=== PATIENT | male | born 1950 | race African-American/Black ===

== ENCOUNTER 2022-10-05 15:10 | Inpatient (IN) | payer BC, MEDICAID ==
[~2022-10-05] VITALS: Ht 172.7 cm; Wt 88.0 kg
[2022-10-05] MEDS ORDERED: SODIUM CHLORIDE 0.9% 1000ML BAG (SEPSIS BOLUS) IV ONE (15:45)
[2022-10-05 16:22] LABS: BG BASE EXCESS -10.2 mmol/L (-2.0-2.0); BG CARBOXYHEMOGLOBIN 0.3 % (0.5-1.5); BG DEOXYHEMOGLOBIN 3.9 % (0.0-5.0); BG FRACTION INSPIRED OXYGEN 21; BG HCO3 ACT 15.2 mmol/L (22.0-26.0); BG METHEMOGLOBIN 0.3 % (0.0-1.5); BG OXYGEN SATURATION 96.1 % (92.0-98.5); BG OXYHEMOGLOBIN 95.5 % (94.0-97.0); BG PH 7.281 (7.350-7.450); BG PO2 90.2 mmHg (75.0-100.0); BG SAMPLE SITE RIGHT RADIAL; BG TOTAL HEMOGLOBIN 16.6 g/dL (12.0-18.0); BG VENT MODE ROOM AIR
[2022-10-05 16:37] LABS: HEMATOCRIT. 49.6 % (42.0-52.0); HEMOGLOBIN. 16.6 g/dL (14.0-18.0); MEAN CORPUSCULAR HEMOGLOBIN 29.1 pg (28.0-32.0); MEAN CORPUSCULAR VOLUME 86.8 fL (80.0-94.0); MEAN PLATELET VOLUME 10.6 fl (7.4-10.4); PLATELET 214 x1000/uL (130-400); RED BLOOD CELL COUNT 5.72 mill/uL (4.7-6.1); RED CELL DISTRIBUTION WIDTH 15.3 % (11.6-14.6)
[2022-10-05 17:38] LABS: CLARITY URINE CLEAR (CLEAR); COLOR URINE YELLOW (YELLOW); KETONES URINE 3+ (NEGATIVE); LEUKOCYTE ESTERASE URINE NEGATIVE (NEGATIVE); NITRITE URINE NEGATIVE (NEGATIVE); OCCULT BLOOD URINE 3+ (NEGATIVE); PROTEIN URINE 2+ (NEGATIVE); UROBILINOGEN URINE 0.2 E.U./dL (0.2-1.0)
[2022-10-05 17:53] LABS: PARTIAL THROMBOPLASTIN TIME 23.4 sec (23.4-31.0); PROTHROMBIN TIME 11.1 sec (9.6-11.0)
[2022-10-05 17:55] LABS: CHLORIDE 110 mEq/L (98-107)
[2022-10-05 17:59] LABS: PLATELET ESTIMATE NORMAL
[2022-10-05 18:21] LABS: BETA HYDROXYBUTYRATE <0.1 mMol/L mMol/L (0.0-0.3)
[2022-10-05 18:26] LABS: CREATINE KINASE 3038 IU/L (39-308)
[2022-10-05] MEDS ORDERED: SODIUM CHLORIDE 0.9% 1,000 ML IV STA (18:31)
[2022-10-05] MEDS ORDERED: LEVOFLOXACIN 750MG PREMIX 150 ML IV ONE (18:45)
[2022-10-05] MEDS ORDERED: KCL 20MEQ/100ML PREMIX 100 ML IV ONE (18:45)
[2022-10-05] MEDS ORDERED: INSULIN REGULAR 100U/100ML PMX 100 ML IV ONE ×2 (18:45→21:15)
[2022-10-05 20:26] LABS: CHLORIDE 114 mEq/L (98-107)
[2022-10-05] MEDS ORDERED: IPRATROPIUM/ALBUTEROL 0.5-3(2.5)MG/3ML NEB HHN PRN (20:45)
[2022-10-05] MEDS ORDERED: ACETAMINOPHEN 325MG TABLET PO PRN (20:45)
[2022-10-05] MEDS ORDERED: SODIUM CHLORIDE 0.45% 1,000 ML IV SCH (21:15)
[2022-10-05] MEDS ORDERED: MAGNESIUM 1 G PREMIX 100 ML IV PRN (21:15)
[2022-10-05] MEDS ORDERED: DEXT 5%/0.45% NACL 1000ML 1,000 ML IV SCH (21:15)
[2022-10-05] MEDS ORDERED: DEXTROSE 50% WATER 50ML SYRINGE IV PRN (21:15)
[2022-10-05] MEDS: BLOOD SUGAR DIAGNOSTIC STRIP TEST SCH ×3 (21:33→23:15)
[2022-10-05 23:05] LABS: CHLORIDE 114 mEq/L (98-107)
[2022-10-05 23:24] LABS: CREATINE KINASE 2997 IU/L (39-308); PHOSPHORUS 2.9 mg/dL (2.5-4.9)
[2022-10-06] VITALS (9 sets, daily range): BP systolic 134–156; BP diastolic 75–96
[2022-10-06] MEDS: METOPROLOL TARTRATE 5MG/5ML VIAL IV SCH ×4 (00:12→21:51)
[2022-10-06] MEDS: ACETAMINOPHEN 325MG TABLET PO PRN (00:13)
[2022-10-06] MEDS: BLOOD SUGAR DIAGNOSTIC STRIP TEST SCH ×9 (00:32→21:50)
[2022-10-06 05:44] LABS: BG BASE EXCESS -4.3 mmol/L (-2.0-2.0); BG CARBOXYHEMOGLOBIN 0.9 % (0.5-1.5); BG FRACTION INSPIRED OXYGEN 21; BG HCO3 ACT 20.3 mmol/L (22.0-26.0); BG METHEMOGLOBIN 0.3 % (0.0-1.5); BG OXYGEN SATURATION 93.9 % (92.0-98.5); BG OXYHEMOGLOBIN 92.8 % (94.0-97.0); BG PH 7.368 (7.350-7.450); BG SAMPLE SITE RIGHT BRACHIAL; BG TOTAL HEMOGLOBIN 15.4 g/dL (12.0-18.0); BG VENT MODE ROOM AIR
[2022-10-06 06:06] LABS: ETHANOL BLOOD < 10 mg/dL
[2022-10-06 06:11] LABS: CHLORIDE 115 mEq/L (98-107)
[2022-10-06 06:26] LABS: HDL CHOLESTEROL 65 mg/dL (40-59); LDL CHOLESTEROL 111 mg/dL (5-100); PHOSPHORUS 2.1 mg/dL (2.5-4.9); T4 FREE 0.96 ng/dL (0.76-1.46)
[2022-10-06 06:28] LABS: HEMATOCRIT. 43.1 % (42.0-52.0); HEMOGLOBIN. 14.4 g/dL (14.0-18.0); MEAN CORPUSCULAR HEMOGLOBIN 28.7 pg (28.0-32.0); MEAN CORPUSCULAR VOLUME 85.9 fL (80.0-94.0); MEAN PLATELET VOLUME 9.9 fl (7.4-10.4); PLATELET 197 x1000/uL (130-400); RED BLOOD CELL COUNT 5.02 mill/uL (4.7-6.1); RED CELL DISTRIBUTION WIDTH 14.5 % (11.6-14.6)
[2022-10-06] MEDS ORDERED: PANTOPRAZOLE 40MG DR TABLET PO SCH (06:30)
[2022-10-06 07:19] LABS: CREATINE KINASE 2865 IU/L (39-308)
[2022-10-06] MEDS ORDERED: CEFTRIAXONE 1GM PREMIX 50 ML IV SCH (09:00)
[2022-10-06 09:20] LABS: PLATELET ESTIMATE NORMAL
[2022-10-06 10:06] LABS: BG BASE EXCESS -5.1 mmol/L (-2.0-2.0); BG DEOXYHEMOGLOBIN 5.4 % (0.0-5.0); BG FRACTION INSPIRED OXYGEN 21; BG HCO3 ACT 19.9 mmol/L (22.0-26.0); BG METHEMOGLOBIN 0.1 % (0.0-1.5); BG OXYGEN SATURATION 94.5 % (92.0-98.5); BG OXYHEMOGLOBIN 93.5 % (94.0-97.0); BG PH 7.348 (7.350-7.450); BG PO2 72.8 mmHg (75.0-100.0); BG SAMPLE SITE LEFT RADIAL; BG TOTAL HEMOGLOBIN 14.7 g/dL (12.0-18.0); BG VENT MODE ROOM AIR
[2022-10-06] MEDS ORDERED: LEVOFLOXACIN 500MG PREMIX 100 ML IV SCH (12:00)
[2022-10-06] MEDS ORDERED: INSULIN GLARGINE 100 UNITS/ML SUBCUT NR (13:15)
[2022-10-06 13:55] LABS: *AMPHETAMINES SCREEN URINE NEGATIVE (NEGATIVE); *BARBITURATES SCREEN URINE NEGATIVE (NEGATIVE); *BENZODIAZEPINES SCREEN URINE NEGATIVE (NEGATIVE); *COCAINE SCREEN URINE NEGATIVE (NEGATIVE); CANNABINOID URINE SCREEN NEGATIVE (NEGATIVE); METHADONE URINE SCREEN NEGATIVE (NEGATIVE); OPIATES URINE SCREEN NEGATIVE (NEGATIVE); PHENCYCLIDINE URINE SCREEN NEGATIVE (NEGATIVE)
[2022-10-06] MEDS ORDERED: DEXTROSE 50% WATER 50ML SYRINGE IV PRN (14:00)
[2022-10-06] MEDS ORDERED: VANCOMYCIN 1G PREMIX 200 ML IV SCH (14:00)
[2022-10-06] MEDS ORDERED: VANCOMYCIN 2,000 MG in DEXT 5% WATER 500 ML IV SCH (15:00)
[2022-10-06] MEDS: INSULIN LISPRO 100 UNITS/ML SUBCUT SCH ×2 (17:54→21:57)
[2022-10-06] MEDS: LEVOFLOXACIN 500MG PREMIX 100 ML IV SCH (18:59)
[2022-10-07] VITALS (11 sets, daily range): BP systolic 133–182; BP diastolic 69–131
[2022-10-07] MEDS: METOPROLOL TARTRATE 5MG/5ML VIAL IV SCH ×3 (06:25→22:18)
[2022-10-07] MEDS: BLOOD SUGAR DIAGNOSTIC STRIP TEST SCH ×4 (07:15→22:07)
[2022-10-07] MEDS: PANTOPRAZOLE 40MG DR TABLET PO SCH (09:28)
[2022-10-07] MEDS: INSULIN LISPRO 100 UNITS/ML SUBCUT SCH ×4 (09:30→22:17)
[2022-10-07] MEDS: VANCOMYCIN 1.25GM PMX (XELLIA) 250 ML IV SCH (13:47)
[2022-10-07] MEDS: AMLODIPINE 10MG TABLET PO SCH (13:48)
[2022-10-07 15:12] LABS: HEMATOCRIT 40.5 % (42.0-52.0); HEMOGLOBIN 13.6 g/dL (14.0-18.0); MEAN CORPUSCULAR HEMOGLOBIN 28.8 pg (28.0-32.0); MEAN CORPUSCULAR VOLUME 85.8 fL (80.0-94.0); PLATELET 166 x1000/uL (130-400); RED BLOOD CELL COUNT 4.72 mill/uL (4.7-6.1); RED CELL DISTRIBUTION WIDTH 14.6 % (11.6-14.6)
[2022-10-07 15:27] LABS: CHLORIDE 110 mEq/L (98-107)
[2022-10-07] MEDS: LEVOFLOXACIN 500MG PREMIX 100 ML IV SCH (18:08)
[2022-10-08] VITALS: BP 142/83
[2022-10-08 04:00] VITALS: BP 158/85
[2022-10-08] MEDS: VANCOMYCIN 1.25GM PMX (XELLIA) 250 ML IV SCH ×2 (05:49→23:46)
[2022-10-08] MEDS: METOPROLOL TARTRATE 5MG/5ML VIAL IV SCH ×3 (05:49→20:35)
[2022-10-08] MEDS: BLOOD SUGAR DIAGNOSTIC STRIP TEST SCH ×4 (06:29→20:35)
[2022-10-08] MEDS: PANTOPRAZOLE 40MG DR TABLET PO SCH (07:18)
[2022-10-08 07:33] LABS: BASOPHILS % 0.3 % (0.0-2.0); EOSINOPHILS % 3.3 % (0.0-5.0); HEMATOCRIT. 41.5 % (42.0-52.0); HEMOGLOBIN. 14.1 g/dL (14.0-18.0); MEAN CORPUSCULAR HEMOGLOBIN 29.1 pg (28.0-32.0); MEAN CORPUSCULAR VOLUME 85.7 fL (80.0-94.0); MEAN PLATELET VOLUME 9.8 fl (7.4-10.4); MONOCYTES % 11.5 % (2.0-8.0); NEUTROPHILS % 62.9 % (40.0-76.0); PLATELET 160 x1000/uL (130-400); RED BLOOD CELL COUNT 4.84 mill/uL (4.7-6.1); RED CELL DISTRIBUTION WIDTH 14.6 % (11.6-14.6)
[2022-10-08 08:00] VITALS: BP 152/76
[2022-10-08] MEDS: AMLODIPINE 10MG TABLET PO SCH (08:09)
[2022-10-08] MEDS: INSULIN LISPRO 100 UNITS/ML SUBCUT SCH ×4 (08:10→20:35)
[2022-10-08 08:56] LABS: CHLORIDE 109 mEq/L (98-107)
[2022-10-08 12:00] VITALS: BP 135/74
[2022-10-08] MEDS ORDERED: LEVOFLOXACIN 500MG TABLET PO SCH (13:00)
[2022-10-08 15:56] VITALS: BP 151/81
[2022-10-08 20:16] VITALS: BP 147/92
[2022-10-09] VITALS (7 sets, daily range): BP systolic 112–166; BP diastolic 59–91
[2022-10-09] MEDS: METOPROLOL TARTRATE 5MG/5ML VIAL IV SCH ×3 (05:17→21:03)
[2022-10-09] MEDS: BLOOD SUGAR DIAGNOSTIC STRIP TEST SCH ×4 (06:18→20:17)
[2022-10-09 07:06] LABS: EOSINOPHILS % 3.1 % (0.0-5.0); HEMATOCRIT. 39.7 % (42.0-52.0); HEMOGLOBIN. 13.6 g/dL (14.0-18.0); LYMPHOCYTES % 24.3 % (20.0-50.0); MEAN CORPUSCULAR VOLUME 84.8 fL (80.0-94.0); MEAN PLATELET VOLUME 9.1 fl (7.4-10.4); MONOCYTES % 9.4 % (2.0-8.0); NEUTROPHILS % 62.2 % (40.0-76.0); PLATELET 149 x1000/uL (130-400); RED BLOOD CELL COUNT 4.68 mill/uL (4.7-6.1); RED CELL DISTRIBUTION WIDTH 14.3 % (11.6-14.6)
[2022-10-09 07:28] LABS: CHLORIDE 109 mEq/L (98-107)
[2022-10-09] MEDS: FAMOTIDINE 20MG TABLET PO SCH ×2 (08:09→21:02)
[2022-10-09] MEDS: AMLODIPINE 10MG TABLET PO SCH (08:09)
[2022-10-09] MEDS: INSULIN LISPRO 100 UNITS/ML SUBCUT SCH ×4 (08:10→21:14)
[2022-10-09] MEDS ORDERED: POLYETHYLENE GLYCOL 3350 (17GM) 1 DOSE PACK PO PRN (10:30)
[2022-10-09] MEDS ORDERED: NA PHOS,M-B/NA PHOS,DI-BA ENEMA 118ML PR PRN (10:30)
[2022-10-09] MEDS: SENNOSIDES/DOCUSATE SOD 8.6/50MG TABLET PO SCH ×2 (10:40→16:08)
[2022-10-09] MEDS: VANCOMYCIN 1500MG in DEXTROSE 5% WATER 250ML IV SCH ×2 (10:41→21:02)
[2022-10-09] MEDS: ACETAMINOPHEN 325MG TABLET PO PRN (21:03)
[2022-10-10] VITALS: BP 155/79
[2022-10-10 04:00] VITALS: BP 144/76
[2022-10-10 05:26] LABS: CHLORIDE 102 mEq/L (98-107)
[2022-10-10] MEDS: METOPROLOL TARTRATE 5MG/5ML VIAL IV SCH ×3 (05:47→21:28)
[2022-10-10 05:58] LABS: BASOPHILS % 0.4 % (0.0-2.0); EOSINOPHILS % 2.6 % (0.0-5.0); HEMATOCRIT. 41.3 % (42.0-52.0); HEMOGLOBIN. 14.2 g/dL (14.0-18.0); LYMPHOCYTES % 23.4 % (20.0-50.0); MEAN CORPUSCULAR HEMOGLOBIN 29.2 pg (28.0-32.0); MEAN CORPUSCULAR VOLUME 85.1 fL (80.0-94.0); MEAN PLATELET VOLUME 9.9 fl (7.4-10.4); MONOCYTES % 10.9 % (2.0-8.0); NEUTROPHILS % 62.7 % (40.0-76.0); PLATELET 163 x1000/uL (130-400); RED BLOOD CELL COUNT 4.85 mill/uL (4.7-6.1); RED CELL DISTRIBUTION WIDTH 14.2 % (11.6-14.6)
[2022-10-10] MEDS: BLOOD SUGAR DIAGNOSTIC STRIP TEST SCH ×4 (06:54→20:16)
[2022-10-10 08:00] VITALS: BP 157/80
[2022-10-10] MEDS: INSULIN LISPRO 100 UNITS/ML SUBCUT SCH ×4 (08:10→21:28)
[2022-10-10] MEDS: AMLODIPINE 10MG TABLET PO SCH (10:25)
[2022-10-10] MEDS: FAMOTIDINE 20MG TABLET PO SCH ×2 (10:26→21:28)
[2022-10-10] MEDS: SENNOSIDES/DOCUSATE SOD 8.6/50MG TABLET PO SCH ×2 (10:26→18:47)
[2022-10-10] MEDS: VANCOMYCIN 1500MG in DEXTROSE 5% WATER 250ML IV SCH ×2 (10:31→18:47)
[2022-10-10 12:00] VITALS: BP 140/79
[2022-10-10 16:00] VITALS: BP 140/70
[2022-10-10 20:00] VITALS: BP 142/61
[2022-10-11] VITALS: BP 159/83
[2022-10-11 04:00] VITALS: BP 167/78
[2022-10-11] MEDS: METOPROLOL TARTRATE 5MG/5ML VIAL IV SCH ×3 (05:00→22:16)
[2022-10-11] MEDS: CLONIDINE 0.1MG TABLET PO PRN (05:00)
[2022-10-11 07:02] LABS: BASOPHILS % 0.4 % (0.0-2.0); EOSINOPHILS % 2.2 % (0.0-5.0); HEMATOCRIT. 39.7 % (42.0-52.0); HEMOGLOBIN. 13.3 g/dL (14.0-18.0); LYMPHOCYTES % 16.2 % (20.0-50.0); MEAN CORPUSCULAR HEMOGLOBIN 28.8 pg (28.0-32.0); MEAN PLATELET VOLUME 9.5 fl (7.4-10.4); MONOCYTES % 12.1 % (2.0-8.0); NEUTROPHILS % 69.1 % (40.0-76.0); PLATELET 175 x1000/uL (130-400); RED BLOOD CELL COUNT 4.62 mill/uL (4.7-6.1)
[2022-10-11] MEDS: BLOOD SUGAR DIAGNOSTIC STRIP TEST SCH ×4 (07:05→21:30)
[2022-10-11 07:11] LABS: CHLORIDE 101 mEq/L (98-107)
[2022-10-11] MEDS: INSULIN LISPRO 100 UNITS/ML SUBCUT SCH ×4 (07:32→22:18)
[2022-10-11] MEDS ORDERED: TETRACAINE/BENZOCAINE/BUTAMBEN 20 GM SPRAY MM ONE (07:36)
[2022-10-11] MEDS ORDERED: FENTANYL CITRATE/PF 50MCG/ML 2ML VIAL ONE (07:57)
[2022-10-11] MEDS ORDERED: MIDAZOLAM HCL 2 MG/2 ML VIAL ONE (07:58)
[2022-10-11] MEDS ORDERED: LIDOCAINE 2% 6ML GLYDO MM ONE (08:00)
[2022-10-11] MEDS ORDERED: DIPHENHYDRAMINE 50MG/ML VIAL ONE (08:07)
[2022-10-11 10:00] VITALS: BP 168/86
[2022-10-11] MEDS: AMLODIPINE 10MG TABLET PO SCH (11:37)
[2022-10-11] MEDS: FAMOTIDINE 20MG TABLET PO SCH ×2 (11:37→22:15)
[2022-10-11] MEDS: SENNOSIDES/DOCUSATE SOD 8.6/50MG TABLET PO SCH ×2 (11:37→17:12)
[2022-10-11 12:00] VITALS: BP 147/85
[2022-10-11] MEDS ORDERED: POTASSIUM CHLORIDE 10MEQ TABLET SR PO NR (13:15)
[2022-10-11] MEDS: VANCOMYCIN 1500MG in DEXTROSE 5% WATER 250ML IV SCH (13:39)
[2022-10-11] MEDS ORDERED: KCL 20MEQ/100ML PREMIX 100 ML IV NR (14:00)
[2022-10-11 16:00] VITALS: BP 147/78
[2022-10-11 20:00] VITALS: BP 110/65
[2022-10-11] MEDS: ENOXAPARIN 40MG/0.4ML SYR SUBCUT SCH (22:16)
[2022-10-11] MEDS: INSULIN GLARGINE 100 UNITS/ML SUBCUT SCH (22:18)
[2022-10-12] VITALS: BP 152/86
[2022-10-12] MEDS: ACETAMINOPHEN 325MG TABLET PO PRN (00:29)
[2022-10-12 04:00] VITALS: BP 150/72
[2022-10-12] MEDS: METOPROLOL TARTRATE 5MG/5ML VIAL IV SCH ×3 (06:48→21:26)
[2022-10-12] MEDS: VANCOMYCIN 1500MG in DEXTROSE 5% WATER 250ML IV SCH (06:49)
[2022-10-12] MEDS: BLOOD SUGAR DIAGNOSTIC STRIP TEST SCH ×4 (07:40→21:26)
[2022-10-12 08:00] VITALS: BP 150/81
[2022-10-12] MEDS: INSULIN LISPRO 100 UNITS/ML SUBCUT SCH ×4 (08:10→21:26)
[2022-10-12] MEDS: SENNOSIDES/DOCUSATE SOD 8.6/50MG TABLET PO SCH ×2 (08:31→16:42)
[2022-10-12] MEDS: FAMOTIDINE 20MG TABLET PO SCH ×2 (08:31→21:26)
[2022-10-12] MEDS: AMLODIPINE 10MG TABLET PO SCH (08:31)
[2022-10-12 12:00] VITALS: BP 136/68
[2022-10-12 16:00] VITALS: BP 130/67
[2022-10-12 16:29] LABS: CREATINE KINASE 263 IU/L (39-308)
[2022-10-12] MEDS ORDERED: ALBUTEROL 6.7GM HFA INHALER ORI PRN (20:00)
[2022-10-12 20:52] VITALS: BP 166/65
[2022-10-12] MEDS: ENOXAPARIN 40MG/0.4ML SYR SUBCUT SCH (21:25)
[2022-10-12] MEDS: CLONIDINE 0.1MG TABLET PO PRN (21:26)
[2022-10-12] MEDS: INSULIN GLARGINE 100 UNITS/ML SUBCUT SCH (21:27)
[2022-10-13] VITALS: BP 169/82
[2022-10-13] MEDS: VANCOMYCIN 1500MG in DEXTROSE 5% WATER 250ML IV SCH (00:56)
[2022-10-13 04:00] VITALS: BP 148/79
[2022-10-13 06:23] LABS: CHLORIDE 98 mEq/L (98-107)
[2022-10-13] MEDS: METOPROLOL TARTRATE 5MG/5ML VIAL IV SCH ×3 (06:23→22:08)
[2022-10-13 06:31] LABS: HEMATOCRIT. 40.4 % (42.0-52.0); HEMOGLOBIN. 13.7 g/dL (14.0-18.0); MEAN CORPUSCULAR VOLUME 85.8 fL (80.0-94.0); MEAN PLATELET VOLUME 9.4 fl (7.4-10.4); PLATELET 199 x1000/uL (130-400); RED BLOOD CELL COUNT 4.71 mill/uL (4.7-6.1); RED CELL DISTRIBUTION WIDTH 14.3 % (11.6-14.6)
[2022-10-13] MEDS: BLOOD SUGAR DIAGNOSTIC STRIP TEST SCH ×4 (06:37→21:59)
[2022-10-13] MEDS: INSULIN LISPRO 100 UNITS/ML SUBCUT SCH ×4 (07:16→22:10)
[2022-10-13 08:00] VITALS: BP 148/91
[2022-10-13] MEDS ORDERED: KCL 20MEQ/100ML PREMIX 100 ML IV NR (09:00)
[2022-10-13] MEDS: FAMOTIDINE 20MG TABLET PO SCH ×2 (09:12→21:59)
[2022-10-13] MEDS: AMLODIPINE 10MG TABLET PO SCH (09:13)
[2022-10-13] MEDS: SENNOSIDES/DOCUSATE SOD 8.6/50MG TABLET PO SCH ×2 (09:14→17:59)
[2022-10-13] MEDS ORDERED: ATOR20TA65 PO (11:17)
[2022-10-13] MEDS ORDERED: DAPT500V17 IV (11:17)
[2022-10-13] MEDS ORDERED: AMLO10TA80 PO (11:17)
[2022-10-13 12:00] VITALS: BP 152/79
[2022-10-13 16:00] VITALS: BP 159/80
[2022-10-13] MEDS ORDERED: BLOOD SUGAR DIAGNOSTIC STRIP TEST SCH (16:40)
[2022-10-13] MEDS: VANCOMYCIN 1G PREMIX 200 ML IV SCH (17:59)
[2022-10-13 18:52] LABS: PLATELET ESTIMATE NORMAL
[2022-10-13 20:00] VITALS: BP 160/86
[2022-10-13] MEDS: ENOXAPARIN 40MG/0.4ML SYR SUBCUT SCH (22:00)
[2022-10-13] MEDS: INSULIN GLARGINE 100 UNITS/ML SUBCUT SCH (22:10)
[2022-10-14] VITALS: BP_SYST 129; BP_SYST 139; BP_DIAS 71; BP_DIAS 82
[2022-10-14 04:00] VITALS: BP 108/81
[2022-10-14] MEDS: VANCOMYCIN 1G PREMIX 200 ML IV SCH ×2 (05:48→17:23)
[2022-10-14] MEDS: BLOOD SUGAR DIAGNOSTIC STRIP TEST SCH ×4 (05:57→21:24)
[2022-10-14] MEDS: INSULIN LISPRO 100 UNITS/ML SUBCUT SCH ×4 (05:57→21:29)
[2022-10-14 08:00] VITALS: BP 145/77
[2022-10-14] MEDS: AMLODIPINE 10MG TABLET PO SCH (09:15)
[2022-10-14] MEDS: SENNOSIDES/DOCUSATE SOD 8.6/50MG TABLET PO SCH ×2 (09:15→17:23)
[2022-10-14] MEDS: FAMOTIDINE 20MG TABLET PO SCH ×2 (09:16→21:28)
[2022-10-14 09:23] LABS: HEMATOCRIT 40.4 % (42.0-52.0); HEMOGLOBIN 13.7 g/dL (14.0-18.0); MEAN CORPUSCULAR HEMOGLOBIN 28.9 pg (28.0-32.0); MEAN CORPUSCULAR VOLUME 85.4 fL (80.0-94.0); PLATELET 200 x1000/uL (130-400); RED BLOOD CELL COUNT 4.73 mill/uL (4.7-6.1); RED CELL DISTRIBUTION WIDTH 14.4 % (11.6-14.6)
[2022-10-14 09:46] LABS: CHLORIDE 100 mEq/L (98-107)
[2022-10-14] MEDS ORDERED: KCL 20MEQ/100ML PREMIX 100 ML IV NR (13:00)
[2022-10-14 16:00] VITALS: BP 105/64
[2022-10-14 20:00] VITALS: BP_SYST 119; BP_SYST 122; BP_DIAS 72; BP_DIAS 80
[2022-10-14] MEDS: GUAIFENESIN 600MG ER TABLET PO SCH (21:28)
[2022-10-14] MEDS: ENOXAPARIN 40MG/0.4ML SYR SUBCUT SCH (21:29)
[2022-10-14] MEDS: INSULIN GLARGINE 100 UNITS/ML SUBCUT SCH (21:30)
[2022-10-15] VITALS: BP 162/78
[2022-10-15] MEDS: CLONIDINE 0.1MG TABLET PO PRN (01:29)
[2022-10-15 04:00] VITALS: BP 121/76
[2022-10-15] MEDS: VANCOMYCIN 1G PREMIX 200 ML IV SCH ×2 (05:50→18:11)
[2022-10-15] MEDS: BLOOD SUGAR DIAGNOSTIC STRIP TEST SCH ×4 (06:03→20:33)
[2022-10-15] MEDS: INSULIN LISPRO 100 UNITS/ML SUBCUT SCH ×4 (06:04→21:15)
[2022-10-15] MEDS: SENNOSIDES/DOCUSATE SOD 8.6/50MG TABLET PO SCH ×2 (09:35→18:11)
[2022-10-15] MEDS: AMLODIPINE 10MG TABLET PO SCH (09:35)
[2022-10-15] MEDS: GUAIFENESIN 600MG ER TABLET PO SCH ×2 (09:35→21:13)
[2022-10-15] MEDS: FAMOTIDINE 20MG TABLET PO SCH ×2 (09:36→21:12)
[2022-10-15 10:08] LABS: HEMATOCRIT 40.2 % (42.0-52.0); HEMOGLOBIN 13.6 g/dL (14.0-18.0); MEAN CORPUSCULAR HEMOGLOBIN 28.8 pg (28.0-32.0); MEAN CORPUSCULAR VOLUME 85.1 fL (80.0-94.0); PLATELET 213 x1000/uL (130-400); RED BLOOD CELL COUNT 4.72 mill/uL (4.7-6.1); RED CELL DISTRIBUTION WIDTH 14.4 % (11.6-14.6)
[2022-10-15 10:15] LABS: CHLORIDE 99 mEq/L (98-107)
[2022-10-15 16:00] VITALS: BP 123/76
[2022-10-15 20:00] VITALS: BP 108/69
[2022-10-15] MEDS: ENOXAPARIN 40MG/0.4ML SYR SUBCUT SCH (21:13)
[2022-10-15] MEDS: INSULIN GLARGINE 100 UNITS/ML SUBCUT SCH (21:14)
[2022-10-16] VITALS: BP 129/74
[2022-10-16 04:00] VITALS: BP_SYST 111; BP_SYST 129; BP_DIAS 65; BP_DIAS 75
[2022-10-16] MEDS: VANCOMYCIN 1G PREMIX 200 ML IV SCH ×2 (05:08→17:14)
[2022-10-16] MEDS: INSULIN LISPRO 100 UNITS/ML SUBCUT SCH ×4 (05:52→22:25)
[2022-10-16] MEDS: BLOOD SUGAR DIAGNOSTIC STRIP TEST SCH ×4 (05:52→21:39)
[2022-10-16 08:00] VITALS: BP 147/85
[2022-10-16] MEDS: AMLODIPINE 10MG TABLET PO SCH (09:23)
[2022-10-16] MEDS: GUAIFENESIN 600MG ER TABLET PO SCH ×2 (09:23→21:39)
[2022-10-16] MEDS: SENNOSIDES/DOCUSATE SOD 8.6/50MG TABLET PO SCH ×2 (09:24→17:14)
[2022-10-16] MEDS: FAMOTIDINE 20MG TABLET PO SCH ×2 (09:24→21:39)
[2022-10-16] MEDS ORDERED: INSULIN GLARGINE 100 UNITS/ML SUBCUT SCH (10:00)
[2022-10-16 12:00] VITALS: BP 140/83
[2022-10-16 16:00] VITALS: BP 135/73
[2022-10-16 20:00] VITALS: BP 139/80
[2022-10-16] MEDS: ENOXAPARIN 40MG/0.4ML SYR SUBCUT SCH (21:39)
[2022-10-16] MEDS: INSULIN GLARGINE 100 UNITS/ML SUBCUT SCH (22:25)
[2022-10-17] VITALS: BP 130/75
[2022-10-17] MEDS: VANCOMYCIN 1G PREMIX 200 ML IV SCH ×2 (06:18→17:09)
[2022-10-17] MEDS: BLOOD SUGAR DIAGNOSTIC STRIP TEST SCH ×4 (06:35→20:36)
[2022-10-17] MEDS: INSULIN LISPRO 100 UNITS/ML SUBCUT SCH ×4 (06:36→21:09)
[2022-10-17 08:00] VITALS: BP 137/86
[2022-10-17] MEDS: GUAIFENESIN 600MG ER TABLET PO SCH ×2 (09:25→21:07)
[2022-10-17] MEDS: AMLODIPINE 10MG TABLET PO SCH (09:25)
[2022-10-17] MEDS: SENNOSIDES/DOCUSATE SOD 8.6/50MG TABLET PO SCH ×2 (09:26→16:38)
[2022-10-17] MEDS: FAMOTIDINE 20MG TABLET PO SCH ×2 (09:26→21:07)
[2022-10-17] MEDS: INSULIN GLARGINE 100 UNITS/ML SUBCUT SCH ×2 (09:27→21:09)
[2022-10-17 12:00] VITALS: BP 126/70
[2022-10-17 16:00] VITALS: BP 124/74
[2022-10-17 20:00] VITALS: BP 125/71
[2022-10-17] MEDS: ENOXAPARIN 40MG/0.4ML SYR SUBCUT SCH (21:07)
[2022-10-18] VITALS: BP 137/83
[2022-10-18 04:00] VITALS: BP 140/77
[2022-10-18] MEDS: BLOOD SUGAR DIAGNOSTIC STRIP TEST SCH ×4 (06:25→21:20)
[2022-10-18] MEDS: INSULIN LISPRO 100 UNITS/ML SUBCUT SCH ×4 (06:26→21:42)
[2022-10-18] MEDS: VANCOMYCIN 1G PREMIX 200 ML IV SCH ×2 (06:41→17:52)
[2022-10-18 08:00] VITALS: BP 149/77
[2022-10-18] MEDS: FAMOTIDINE 20MG TABLET PO SCH ×2 (09:28→21:40)
[2022-10-18] MEDS: AMLODIPINE 10MG TABLET PO SCH (09:28)
[2022-10-18] MEDS: GUAIFENESIN 600MG ER TABLET PO SCH ×2 (09:29→21:40)
[2022-10-18] MEDS: SENNOSIDES/DOCUSATE SOD 8.6/50MG TABLET PO SCH ×2 (09:29→16:20)
[2022-10-18] MEDS: INSULIN GLARGINE 100 UNITS/ML SUBCUT SCH ×2 (09:32→21:44)
[2022-10-18 12:00] VITALS: BP 150/74
[2022-10-18 16:00] VITALS: BP 101/70
[2022-10-18 20:00] VITALS: BP 127/75
[2022-10-18] MEDS: ENOXAPARIN 40MG/0.4ML SYR SUBCUT SCH (21:49)
[2022-10-19] VITALS: BP 133/73
[2022-10-19 04:00] VITALS: BP 134/75
[2022-10-19] MEDS: VANCOMYCIN 1G PREMIX 200 ML IV SCH ×2 (06:23→18:28)
[2022-10-19] MEDS: BLOOD SUGAR DIAGNOSTIC STRIP TEST SCH ×4 (06:39→20:51)
[2022-10-19] MEDS: INSULIN LISPRO 100 UNITS/ML SUBCUT SCH ×4 (07:10→21:10)
[2022-10-19 08:00] VITALS: BP 194/89
[2022-10-19] MEDS: SENNOSIDES/DOCUSATE SOD 8.6/50MG TABLET PO SCH ×2 (08:47→18:28)
[2022-10-19] MEDS: FAMOTIDINE 20MG TABLET PO SCH ×2 (08:47→21:12)
[2022-10-19] MEDS: GUAIFENESIN 600MG ER TABLET PO SCH ×2 (08:48→21:12)
[2022-10-19] MEDS: AMLODIPINE 10MG TABLET PO SCH (08:48)
[2022-10-19] MEDS: INSULIN GLARGINE 100 UNITS/ML SUBCUT SCH ×2 (10:00→21:11)
[2022-10-19 12:00] VITALS: BP 147/82
[2022-10-19 16:00] VITALS: BP 130/77
[2022-10-19 20:00] VITALS: BP_SYST 145; BP_SYST 159; BP_SYST 160; BP_DIAS 61; BP_DIAS 70; BP_DIAS 79
[2022-10-19] MEDS: ENOXAPARIN 40MG/0.4ML SYR SUBCUT SCH (21:12)
[2022-10-20] VITALS: BP 159/68
[2022-10-20 04:00] VITALS: BP 153/76
[2022-10-20] MEDS: BLOOD SUGAR DIAGNOSTIC STRIP TEST SCH ×4 (05:56→21:36)
[2022-10-20] MEDS: INSULIN LISPRO 100 UNITS/ML SUBCUT SCH ×7 (05:56→21:54)
[2022-10-20] MEDS: VANCOMYCIN 1G PREMIX 200 ML IV SCH ×2 (06:00→23:10)
[2022-10-20 08:00] VITALS: BP 138/75
[2022-10-20] MEDS: SENNOSIDES/DOCUSATE SOD 8.6/50MG TABLET PO SCH ×2 (09:11→18:20)
[2022-10-20] MEDS: GUAIFENESIN 600MG ER TABLET PO SCH ×2 (09:11→21:53)
[2022-10-20] MEDS: FAMOTIDINE 20MG TABLET PO SCH ×2 (09:11→21:53)
[2022-10-20] MEDS: AMLODIPINE 10MG TABLET PO SCH (09:11)
[2022-10-20] MEDS: INSULIN GLARGINE 100 UNITS/ML SUBCUT SCH ×2 (09:46→21:53)
[2022-10-20 12:00] VITALS: BP 130/78
[2022-10-20 16:00] VITALS: BP 119/72
[2022-10-20 20:00] VITALS: BP 144/71
[2022-10-20 21:17] LABS: BASOPHILS % 0.4 % (0.0-2.0); EOSINOPHILS % 1.3 % (0.0-5.0); HEMATOCRIT. 40.1 % (42.0-52.0); HEMOGLOBIN. 13.5 g/dL (14.0-18.0); MEAN CORPUSCULAR HEMOGLOBIN 28.9 pg (28.0-32.0); MEAN CORPUSCULAR VOLUME 85.5 fL (80.0-94.0); MEAN PLATELET VOLUME 9.8 fl (7.4-10.4); NEUTROPHILS % 70.3 % (40.0-76.0); PLATELET 215 x1000/uL (130-400); RED BLOOD CELL COUNT 4.68 mill/uL (4.7-6.1); RED CELL DISTRIBUTION WIDTH 14.7 % (11.6-14.6)
[2022-10-20 21:24] LABS: CHLORIDE 100 mEq/L (98-107)
[2022-10-20] MEDS: ENOXAPARIN 40MG/0.4ML SYR SUBCUT SCH (21:53)
[2022-10-21] VITALS: BP 140/70
[2022-10-21 04:00] VITALS: BP 142/74
[2022-10-21] MEDS: BLOOD SUGAR DIAGNOSTIC STRIP TEST SCH ×4 (06:04→21:36)
[2022-10-21] MEDS: INSULIN LISPRO 100 UNITS/ML SUBCUT SCH ×6 (06:04→21:46)
[2022-10-21] MEDS: VANCOMYCIN 1G PREMIX 200 ML IV SCH ×2 (06:59→17:30)
[2022-10-21 08:00] VITALS: BP_SYST 135; BP_SYST 190; BP_DIAS 70; BP_DIAS 83
[2022-10-21] MEDS: AMLODIPINE 10MG TABLET PO SCH (08:56)
[2022-10-21] MEDS: GUAIFENESIN 600MG ER TABLET PO SCH ×2 (08:56→21:42)
[2022-10-21] MEDS: SENNOSIDES/DOCUSATE SOD 8.6/50MG TABLET PO SCH ×2 (08:56→17:29)
[2022-10-21] MEDS: FAMOTIDINE 20MG TABLET PO SCH ×2 (08:56→21:42)
[2022-10-21] MEDS: INSULIN GLARGINE 100 UNITS/ML SUBCUT SCH ×2 (08:58→21:43)
[2022-10-21 12:00] VITALS: BP 131/65
[2022-10-21] MEDS ORDERED: GUAIFENESIN-DM 200MG-20MG/10ML UDC PO PRN (13:15)
[2022-10-21 16:00] VITALS: BP 135/70
[2022-10-21 20:00] VITALS: BP 143/73
[2022-10-21] MEDS: ENOXAPARIN 40MG/0.4ML SYR SUBCUT SCH (21:48)
[2022-10-22] VITALS: BP 140/71
[2022-10-22 04:00] VITALS: BP 152/83
[2022-10-22] MEDS: VANCOMYCIN 1G PREMIX 200 ML IV SCH (05:49)
[2022-10-22] MEDS: BLOOD SUGAR DIAGNOSTIC STRIP TEST SCH ×2 (06:22→11:40)
[2022-10-22] MEDS: INSULIN LISPRO 100 UNITS/ML SUBCUT SCH ×3 (06:22→12:46)
[2022-10-22 08:00] VITALS: BP 172/87
[2022-10-22] MEDS: GUAIFENESIN 600MG ER TABLET PO SCH (08:44)
[2022-10-22] MEDS: SENNOSIDES/DOCUSATE SOD 8.6/50MG TABLET PO SCH (08:44)
[2022-10-22] MEDS: FAMOTIDINE 20MG TABLET PO SCH (08:44)
[2022-10-22] MEDS: AMLODIPINE 10MG TABLET PO SCH (08:44)
[2022-10-22] MEDS: INSULIN GLARGINE 100 UNITS/ML SUBCUT SCH (10:05)
[2022-10-22] MEDS: ACETAMINOPHEN 325MG TABLET PO PRN (12:47)
[2022-10-22 15:00] VITALS: BP 137/76
[2022-10-22 16:00] VITALS: BP 118/74
[2022-10-22] MEDS ORDERED: VANCOMYCIN 500MG PREMIX 100 ML IV SCH (18:00)
== END 2022-10-22 17:27 | DRG 871 ==
LOC: ER 15:10 → MICUSO 18:38 → EDBEDREQTM 18:40 → EDBEDREQ 18:40 → EDBEDREQSVC 18:40 → 5EST 10-06 11:21 → 7WST 10-07 19:20 → 7EST 10-12 22:14
PROVIDERS: ADMIT Internal Medicine; ATTEND Internal Medicine
PROC: 02HV33Z Insertion of Infusion Device into Superior Vena Cava, Percutaneous Approach (ICD-10-PCS; principal; 2022-10-13)
PROC: B548ZZA Ultrasonography of Superior Vena Cava, Guidance (ICD-10-PCS; 2022-10-13)
DX: A41.89 Other specified sepsis (principal); E11.10 Type 2 diabetes mellitus with ketoacidosis without coma; J12.82 Pneumonia due to coronavirus disease 2019; U07.1 COVID-19; G93.41 Metabolic encephalopathy; E87.0 Hyperosmolality and hypernatremia; G91.9 Hydrocephalus, unspecified; N39.0 Urinary tract infection, site not specified; I38 Endocarditis, valve unspecified; E46 Unspecified protein-calorie malnutrition; I70.0 Atherosclerosis of aorta; J45.909 Unspecified asthma, uncomplicated; Z68.32 Body mass index [BMI] 32.0-32.9, adult; N28.1 Cyst of kidney, acquired; K40.20 Bilateral inguinal hernia, without obstruction or gangrene, not specified as recurrent; F03.90 Unspecified dementia, unspecified severity, without behavioral disturbance, psychotic disturbance, mood disturbance, and anxiety; B96.89 Other specified bacterial agents as the cause of diseases classified elsewhere; K44.9 Diaphragmatic hernia without obstruction or gangrene; N40.0 Benign prostatic hyperplasia without lower urinary tract symptoms; K76.0 Fatty (change of) liver, not elsewhere classified; N32.89 Other specified disorders of bladder; I10 Essential (primary) hypertension; Z88.0 Allergy status to penicillin; B95.62 Methicillin resistant Staphylococcus aureus infection as the cause of diseases classified elsewhere
CPT/HCPCS: 36415; 36573; 36600; 71045; 73100; 74176; 80048; 80051; 80053; 80061; 80202; 80305; 80320; 81003; 82010; 82140; 82375; 82550; 82805; 82962; 83036; 83605; 83735; 83880; 83930; 84100; 84145; 84439; 84443; 84484; 85025; 85027; 86850; 86900; 87077; 87186; 87426; 93005; 93306; 93312; 93880; 93970; 97112; 97116; 97162; 97166; 97530; 97535; 99291; A6261; C1725; C1893; J1200; J1650; J1815; J1956; J2250; J3010; J3370; J3480; J3490; J7030; J7060; G0480